=== PATIENT | female | born 1975 | race Hispanic/Latino ===

== ENCOUNTER 2017-11-26 09:04 | Emergency (ER) | payer BC, SELFPAY ==
[2017-11-26] MEDS ORDERED: Acetaminophen 500 MG TAB ONE (09:32)
[2017-11-26] MEDS ORDERED: Meclizine HCl 25 MG TAB ONE (09:33)
[2017-11-26] MEDS ORDERED: Ondansetron ODT 4 MG TAB ONE (09:33)
[2017-11-26] MEDS ORDERED: diphenhydrAMINE 50 MG/ML VIAL ONE (10:42)
== END 2017-11-26 11:10 | disposition home or self-care (01) ==
LOC: ERS 09:04
DX: R42 Dizziness and giddiness (principal); F32.9 Major depressive disorder, single episode, unspecified
CPT/HCPCS: 93005; 96372; J1200; Q0162

== ENCOUNTER 2018-06-29 15:20 | Outpatient (CLI) | payer BC | END 2018-06-29 15:21 | disposition home or self-care (01) | LOC: BICMAMMO 15:20 | PROVIDERS: ATTEND Family Medicine | DX: Z12.31 Encounter for screening mammogram for malignant neoplasm of breast (principal); N64.89 Other specified disorders of breast | CPT/HCPCS: 77063; 77067 ==

== ENCOUNTER 2020-10-04 12:58 | Outpatient (CLI) | payer MEDICAID | END 2020-10-04 12:59 | disposition home or self-care (01) | LOC: BICMAMMO 12:58 | PROVIDERS: ATTEND Nurse Practitioner Family | DX: Z12.31 Encounter for screening mammogram for malignant neoplasm of breast (principal) | CPT/HCPCS: 77063; 77067 ==

== ENCOUNTER 2021-02-03 06:19 | Emergency (ER) | payer MEDICAID ==
[2021-02-03 10:30] LABS: ALT (SGPT) 35 U/L (8-55); AST (SGOT) 35 U/L (5-34); Albumin 4.2 g/dL (3.5-5.0); Alkaline Phosphatase 59 U/L (40-110); Anion Gap 12 mmol/L (10-20); BUN (Urea Nitrogen) 8 mg/dL (7.0-18.7); Bilirubin, Total 0.3 mg/dL (0.2-1.2); Calc. Creatinine Clearance 0 mL/min (70-130); Calcium 9.2 mg/dL (7.8-10.44); Carbon Dioxide 30 mmol/L (22-29); Chloride 100 mmol/L (98-107); Globulin 3.1 g/dL (2.4-3.5); Glucose 113 mg/dL (70-105); Potassium 3.5 mmol/L (3.5-5.1); Protein, Total 7.3 g/dL (6.0-8.3); Sodium 138 mmol/L (136-145)
[2021-02-03 10:35] LABS: %Lymphocytes 31.7 % (21.0-51.0); %Monocytes 11.3 % (0.0-10.0); Hemoglobin 14.2 g/dL (12.0-16.0); Mean Corpuscular HGB CONC 32.4 g/dL (32.0-36.0); Mean Corpuscular Hemoglobin 28.8 pg (27.0-31.0); Mean Platelet Volume 7.7 fL (7.4-10.4); Platelet Count 228 thou/uL (130-400); RBC Distribution Width 11.7 % (11.5-14.5); Red Blood Cell (RBC) Count 4.94 mill/uL (4.20-5.40); White Blood Cell (WBC) Count 3.8 thou/uL (4.8-10.8)
[2021-02-03 10:36] LABS: #Basophils 0.1 thou/uL (0.0-0.2); #Lymphocytes 1.2 thou/uL (1.20-3.40); #Monocytes 0.4 thou/uL (0.11-0.59); #Neutrophils 2.1 thou/uL (1.40-6.50); %Basophils 1.8 % (0.0-1.0); %Eosinophils 0.1 % (0.0-10.0)
[2021-02-03 11:44] LABS: Bilirubin Negative (Negative); Blood, Urine Negative (Negative); Clarity Clear (Clear); Glucose, Urine (Dipstick) Normal (Negative); Ketone, Urine Negative (Negative); Leukocyte Negative Leu/uL (Negative); Nitrite Negative (Negative); Protein, Urine (Dipstick) Negative (Neg-Trace); Specific Gravity, Urine 1.017 (1.002-1.036); Urobilinogen Normal mg/dL (Less than 2)
[2021-02-03] MEDS ORDERED: Iopamidol-370 76% 500 ML 1 ML ONE (15:25)
== END 2021-02-03 13:52 | disposition home or self-care (01) ==
LOC: ERS 06:19
DX: U07.1 COVID-19 (principal)
CPT/HCPCS: 71045; 71275; 80053; 81003; 84484; 85025; 85379; 93005; 96374; Q9967

== ENCOUNTER 2021-04-06 06:52 | Outpatient (CLI) | payer BC, MEDICAID | END 2021-04-06 06:53 | disposition home or self-care (01) | LOC: BICULT 06:52 | PROVIDERS: ATTEND Nurse Practitioner Women's Health | DX: R10.2 Pelvic and perineal pain (principal); D25.9 Leiomyoma of uterus, unspecified | CPT/HCPCS: 76856 ==

== ENCOUNTER 2023-06-12 18:31 | Emergency (ER) | payer BC, OTHER ==
[2023-06-12] MEDS ORDERED: Acetaminophen 500 MG TAB ONE (19:54)
[2023-06-12] MEDS ORDERED: Ibuprofen 800 MG TAB ONE (19:54)
[2023-06-12] MEDS ORDERED: Dexamethasone 4 MG TAB ONE (20:15)
[2023-06-12 21:00] LABS: SARS-CoV-2 NAA Rapid Test Not Detected (NotDetected)
== END 2023-06-12 20:41 | disposition home or self-care (01) ==
LOC: ERS 18:31
DX: B34.9 Viral infection, unspecified (principal)
CPT/HCPCS: 71045; J8540